=== PATIENT | female | born 1950 | race Caucasian/White ===

== ENCOUNTER 2023-08-27 14:45 | Emergency (ER) | payer OTHER ==
[2023-08-27 15:15] VITALS: BP 188/78; PULSE 92; RESP 17; TEMP 98.1; BMI 30.2
[2023-08-27] MEDS ORDERED: METHOCARBAMOL 500 MG TABLET ONE (15:24)
[2023-08-27] MEDS ORDERED: LIDOCAINE 5% TOPICAL PATCH ONE (15:24)
[2023-08-27] MEDS: METHOCARBAMOL 500 MG TABLET PO ONE (15:32)
[2023-08-27] MEDS: LIDOCAINE 5% TOPICAL PATCH TP ONE (15:32)
[2023-08-27 15:33] LABS: HEMATOCRIT 44.9 % (32.4-45.2); HEMOGLOBIN 15.4 G/dL (10.7-15.3); MCH 31.6 pg (25.7-33.7); MCHC 34.2 g/dl (32.0-36.0); MEAN CELL VOLUME 92.3 fl (80-96); MEAN PLT VOLUME 8.7 fl (7.5-11.1); PLATELET COUNT 286.3 10^3/uL (134-434); RBC 4.86 10^6/uL (3.60-5.2); RDW 14.3 % (11.6-15.6); WHITE BLOOD COUNT 12.4 10^3/uL (4.0-10.8)
[2023-08-27] MEDS ORDERED: morphine SULFATE 4 MG/ML VIAL ONE (15:33)
[2023-08-27 15:45] LABS: PLATELET ESTIMATE ADEQUATE
[2023-08-27] MEDS: morphine CARPU-JECT 2 MG/1 ML DISP.SYRIN IVPUSH ONE (15:47)
[2023-08-27 16:18] LABS: ALBUMIN 4.2 g/dl (3.4-5.0); BILIRUBIN,TOTAL 0.6 mg/dl (0.2-1); CALCIUM 9.7 mg/dl (8.5-10.1); CREATININE 0.7 mg/dl (0.6-1.3); MAGNESIUM 1.5 mg/dL (1.8-2.4); POTASSIUM 3.9 mmol/L (3.5-5.1); TOT PROT 6.6 g/dl (6.4-8.2)
[2023-08-27] MEDS ORDERED: MAGNESIUM SULFATE IN WATER 2 GM/50 ML IVPB IVPB ONE (17:15)
[2023-08-27] MEDS: MAGNESIUM SULF 50% (8.12 MEQ/2 ML-1 GM VIAL) IVPB ONE (17:30)
[2023-08-27] MEDS: SODIUM CHLORIDE 0.9% 500 ML INFUS.BAG IV ONE (18:04)
[2023-08-27] MEDS ORDERED: KETOROLAC TROMETHAMINE 15 MG/ML VIAL ONE (19:08)
[2023-08-27] MEDS: KETOROLAC TROMETHAMINE 15 MG/ML VIAL IVPUSH ONE (19:17)
[2023-08-27] MEDS ORDERED: LIDOCAINE PATCH REMOVAL MC SCH (22:00)
== END 2023-08-27 19:34 | disposition home or self-care (01) ==
LOC: FER 14:45
PROC: 3E033NZ Introduction of Analgesics, Hypnotics, Sedatives into Peripheral Vein, Percutaneous Approach (ICD-10-PCS; principal; 2023-08-27)
PROC: 3E033GC Introduction of Other Therapeutic Substance into Peripheral Vein, Percutaneous Approach (ICD-10-PCS; 2023-08-27)
PROC: 3E033GC Introduction of Other Therapeutic Substance into Peripheral Vein, Percutaneous Approach (ICD-10-PCS; 2023-08-27)
DX: R10.32 Left lower quadrant pain (principal); M79.605 Pain in left leg; K52.9 Noninfective gastroenteritis and colitis, unspecified; M54.50 Low back pain, unspecified; Z20.822 Contact with and (suspected) exposure to COVID-19
CPT/HCPCS: 0241U-QW; 36415; 72131-TC; 74177-TC; 80053; 81003; 81015; 83735; 85027; 87086; 96374; 96375; 99285-25; Q9967